=== PATIENT | male | born 1970 | race Hispanic/Latino ===

== ENCOUNTER 2018-03-07 07:31 | Outpatient (CLI) | payer OTHER ==
[2018-03-07] MEDS ORDERED: Gadobenate Dimeglumine 529 MG/1 ML (20ML VIAL) ONE (09:00)
--- NOTE | 2018-03-07 11:00 | MRI ---
PRE AND POST CONTRAST ENHANCED MRI BRAIN: HISTORY: Paresthesia (R20.2). TECHNIQUE: Multiplanar, multisequence pre and post contrast MRI of the brain obtained. FINDINGS: Images demonstrate the brain to be unremarkable. No evidence of intracranial masses, hemorrhages, st rokes, or contusions seen. The ventricles are of normal size. 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 There is also a second cyst, diameter measuring approximately 6 x 10 mm, in the left basal ganglion. Both lesions appear to be cystic on MRI sequences, without evidence of enha ncement. No significant evidence of adjacent T2 signal abnormality seen in the adjacent brain. I do recommend, however, a follow-up MRI in six months, to confirm imaging stability. Normal flow voids seen in the major intracranial vessels. 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 POS: ARCHIE
== END 2018-03-07 07:32 | disposition home or self-care (01) ==
LOC: SCSMRI 07:31
PROVIDERS: ATTEND Psychiatry & Neurology Neurology
DX: R20.2 Paresthesia of skin (principal); G23.8 Other specified degenerative diseases of basal ganglia
CPT/HCPCS: 70553; A9579

== ENCOUNTER 2018-09-29 15:13 | Outpatient (CLI) | payer OTHER ==
--- NOTE | 2018-09-29 16:18 | RAD ---
LUMBAR SPINE SIX VIEWS: HISTORY: Back pain. FINDINGS: Slight curvature to the left, with apex at L3. Vertebral bodies maintain height and alignment on the lateral view. Mild to moderate degenerative osteophytes are seen, most prominent at L2 and L3. Mil d loss of disk space at L4-L5. No evidence of spondylolisthesis. Mild to moderate facet hypertrophy . IMPRESSION: There are mild to moderate degenerative changes, as described. No evidence of lumbar compression or fracture. POS: ARCHIE
--- NOTE | 2018-09-29 16:19 | RAD ---
CERVICAL SPINE: HISTORY: Neck pain. FINDINGS: Cervical vertebrae maintain normal height and alignment. There are mild degenerative changes noted. There is mild loss of disk space seen at C4-C5 and C5-C6. There are mild osteophytes at these level s. Posterior elements are normally aligned. Mild facet hypertrophy. The foramina appear patent on oblique views. IMPRESSION: There are mild degenerative changes, most prominent at the C4-C5 and C5-C6 levels, as described. POS: ARCHIE
== END 2018-09-29 15:14 | disposition home or self-care (01) ==
LOC: SCSRAD 15:13
PROVIDERS: ATTEND Family Medicine
DX: M54.5 Low back pain (principal); M54.2 Cervicalgia; M47.816 Spondylosis without myelopathy or radiculopathy, lumbar region; M47.812 Spondylosis without myelopathy or radiculopathy, cervical region
CPT/HCPCS: 72050; 72100

== ENCOUNTER 2019-09-20 07:47 | Outpatient (CLI) | payer OTHER ==
--- NOTE | 2019-09-20 09:34 | ULT ---
RIGHT UPPER QUADRANT ULTRASOUND: HISTORY: Right upper quadrant abdominal pain. FINDINGS: Very coarse increased liver echogenicity, evidence for fatty change with some hypoechoic areas adjace nt to the gallbladder, evidence for fatty sparing. No evidence of gallstones, wall thickening, edema , or pericholecystic fluid. Visualized pancreas and right kidney are unremarkable. No right upper q uadrant fluid collection. IMPRESSION: Prominent fatty changes in the liver with some fatty sparing adjacent to the gallbladder. Common josé luis e duct 0.7 cm. No evidence of gallstones. POS: OFF
== END 2019-09-20 07:48 | disposition home or self-care (01) ==
LOC: SCSULT 07:47
PROVIDERS: ATTEND Family Medicine
DX: R10.11 Right upper quadrant pain (principal); K76.0 Fatty (change of) liver, not elsewhere classified; K82.8 Other specified diseases of gallbladder
CPT/HCPCS: 76705